=== PATIENT | male | born 1965 | race Caucasian/White ===

== ENCOUNTER 2018-08-04 15:30 | Outpatient (RCR) | payer OTHER, SELFPAY ==
--- NOTE | 2018-06-05 16:11 | HP.PTEVAL_ITS ---
Patient's Visit Information HONG SILVESTRE is a 53 year old M referred to Physical Therapy by Anel Bueno MD with a diagnosis of B plantar fasciitis.. Date of Evaluation: 06/05/18 Physical Therapist: Puneet Mccormack DPT, OCS, CSCS - Visit Plan Duration: 1 more visit Plan: Call pt when orthotics arrive for fitting. They were molded and sent off to [employer] today. - Subjective Findings: Orthotics are working well and uses older ones but time for new ones. Not really having pain but the plantar fascia can still get tender if he does more. stretches regularly and orthotics help keep it under control. Not able to run. Plays tennis and walks daily without issue 3 miles daily. Switches walking shoes every 6 months. - Objective Pt walks normal and trasnfers normal. No antalgia or limping in gait today. Mild tenderness in B PF bodies. Frontal plane mechanics at feet are slightly pes cavus. Otherwise unremarkable. AROM R ankle to approx 3 degrees DF with knee straight and WFL otherwise. Strength 5/5 in inversion/eversion and DF. - Goals Goal 1:: fit for and I in use of 9dispensed) custom orthotics per doctor order. Goal Time Frame: 2-4 Weeks - Rehabilitation Potential Physical Therapy Diagnosis: B plantarfasciitis history Rehabilitation Potential: Fair - Anticipated Interventions Patient/Client Instruction: Educate patient on: Plan of Care Other: orthotics Orthotics: Shoe insert For the Purpose of:: To decrease pain, To increase tolerance to activity/condition/position Thank you for the opportunity to evaluate your patient. For Medicare and Medicare HMO plans, please review the plan of care and approve it. It will need to be FAXED BACK to us at [phone] for Medicare purposes. For Medicare only, by signing this I certify the plan of care. Please let me know if there are questions or concerns regarding this plan of care. Physician Signature: Date :
--- OUTSIDE RECORDS SUMMARY | 2018-09-09 06:30 | XMS RPT_ITS ---
:1965 Author Organization OHIP Care Team Providers Name Role Phone Anel Bueno Attending Unavailable Anel Bueno Primary Care Unavailable PROBLEMS PROBLEMS No Problem Records FoundPROCEDURES PROCEDURES No Procedure Records FoundRESULTS RESULTS BMP Collected: 06/30/2018 Status: F Source: [facility] 4:20 [place] [facility] REPOSITORY TYPE CODE TESTS RESULT OUT OF REFERENCE UNITS RANGE LAB GLU(LOINC) 70-110 mg/dL Glucose Level 96 LAB NA(LOINC) 136-145 mEq/L Sodium Level 144 LAB K(LOINC) 3.5-5.0 mEq/L Potassium Level 4.3 LAB CL(LOINC) 98-110 mEq/L Chloride 105 LAB CO2(LOINC) 22-32 mEq/L CO2 32 LAB EBAL(LOINC 4.0-15.0 mEq/L ) Electrolyte Balance 7.0 LAB BUN(LOINC) 8.0-22.0 mg/dL BUN 18.0 LAB CRE(LOINC) 0.60-1.40 mg/dL Creatinine Lvl (s) 0.98 LAB BC(LOINC) 10.0-22.0 ratio BUN/Creatinine 18.4 Ratio LAB CA(LOINC) 8.4-10.1 mg/dL Calcium Lvl 9.0 Performed By: #### BMP, CK, GFR #### [address] [address] CK Collected: 06/30/2018 Status: F Source: [facility] 4:20 PM [facility] REPOSITORY TYPE CODE TESTS RESULT OUT OF RANGE REFERENCE UNITS LAB CK(LOINC) 7-185 U/L CPK 100 Performed By: #### BMP, CK, GFR #### [address] [address] .GFR Collected: 06/30/2018 Status: F Source: [facility] 4:20 PM [facility] REPOSITORY TYPE CODE TESTS RESULT OUT OF REFERENCE UNITS RANGE LAB GFRAA(LOINC ml/min/1.73 ) sqm GFR >60 [place] Result Comment: GFR Population mean for , Non- Americans Ages 20-29 = 116 mL/min/1.73 sq.m. Ages 30-39 = 107 mL/min/1.73 sq.m. Ages 40-49 = 99 mL/min/1.73 sq.m. Ages 50-59 = 93 mL/min/1.73 sq.m. Ages 60-69 = 85 mL/min/1.73 sq.m. Ages 70+ = 75 mL/min/1.73 sq.m. Chronic Kidney Disease: Less than 60 mL/min/1.73 square meters End Stage Renal Disease: Less than 15 mL/min/1.73 square meters LAB GFRNO(LOINC) ml/min/1.73sqm GFR Non- >60 Result Comment: GFR Population mean for , Non- Americans Ages 20-29 = 116 mL/min/1.73 sq.m. Ages 30-39 = 107 mL/min/1.73 sq.m. Ages 40-49 = 99 mL/min/1.73 sq.m. Ages 50-59 = 93 mL/min/1.73 sq.m. Ages 60-69 = 85 mL/min/1.73 sq.m. Ages 70+ = 75 mL/min/1.73 sq.m. Chronic Kidney Disease: Less than 60 mL/min/1.73 square meters End Stage Renal Disease: Less than 15 mL/min/1.73 square meters Performed By: #### BMP, CK, GFR #### [place] [address] FE Collected: 06/09/2018 Status: F Source: [facility] 9:51 AM [facility] REPOSITORY TYPE CODE TESTS RESULT OUT OF RANGE REFERENCE UNITS LAB FE(LOINC) 49-181 mcg/dL Iron 135 Performed By: #### FE, TSH, CK, CMP, GFR, LIPID, CBC, ADIFF, ANEU #### [place] [address] TSH Collected: 06/09/2018 Status: F Source: [facility] 9:51 AM [facility] REPOSITORY TYPE CODE TESTS RESULT OUT OF RANGE REFERENCE UNITS LAB TSH(LOINC) 0.360-3.740 mcIU/mL TSH 2.500 Result Comment: Please note as of 01/04/17 new pediatric reference intervals were added for this test. Performed By: #### FE, TSH, CK, CMP, GFR, LIPID, CBC, ADIFF, ANEU #### [facility] [address] [place] [address] CK Collected: 06/09/2018 Status: F Source: [facility] 9:51 AM [facility] REPOSITORY TYPE CODE TESTS RESULT OUT OF RANGE REFERENCE UNITS LAB CK(LOINC) 7-185 U/L CPK 128 Performed By: #### FE, TSH, CK, CMP, GFR, LIPID, CBC, ADIFF, ANEU #### [facility] [address] [place] [address] CMP Collected: 06/09/2018 Status: F Source: [facility] 9:51 AM [facility] REPOSITORY TYPE CODE TESTS RESULT OUT OF REFERENCE UNITS RANGE LAB GLU(LOINC) 70-110 mg/dL Glucose Level 81 LAB NA(LOINC) 136-145 mEq/L Sodium Level 141 LAB K(LOINC) 3.5-5.0 mEq/L Potassium Level 4.3 LAB CL(LOINC) 98-110 mEq/L Chloride 103 LAB CO2(LOINC) 22-32 mEq/L CO2 32 LAB EBAL(LOINC 4.0-15.0 mEq/L ) Electrolyte Balance 6.0 LAB BUN(LOINC) 8.0-22.0 mg/dL BUN 15.0 LAB CRE(LOINC) 0.60-1.40 mg/dL Creatinine Lvl (s) 0.89 LAB BC(LOINC) 10.0-22.0 ratio BUN/Creatinine 16.9 Ratio LAB CA(LOINC) 8.4-10.1 mg/dL Low Calcium Lvl 8.2 LAB PROT(LOINC 6.0-8.5 G/dL ) Total Protein 7.1 LAB ALB(LOINC) 3.2-4.8 G/dL Albumin Level 3.8 LAB GLB(LOINC) 1.5-3.8 G/dL Globulin 3.3 LAB AG(LOINC) 0.9-1.6 ratio A/G Ratio 1.2 LAB BILT(LOINC 0.2-1.2 mg/dL ) Bili Total 0.8 LAB AP(LOINC) 38-126 U/L Alk Phos 51 LAB AST(LOINC) 8-34 U/L AST/SGOT 18 LAB ALT(LOINC) 12-55 U/L ALT/SGPT 37 Performed By: #### FE, TSH, CK, CMP, GFR, LIPID, CBC, ADIFF, ANEU #### [place] [address] .GFR Collected: 06/09/2018 Status: F Source: [facility] 9[facility] REPOSIT[facility] TYPE CODE TESTS RESULT OUT OF REFERENCE UNITS RANGE LAB GFRAA(LOINC ml/min/1.73 ) sqm GFR >60 [place] Result Comment: GFR Population mean for , Non- Americans Ages 20-29 = 116 mL/min/1.73 sq.m. Ages 30-39 = 107 mL/min/1.73 sq.m. Ages 40-49 = 99 mL/min/1.73 sq.m. Ages 50-59 = 93 mL/min/1.73 sq.m. Ages 60-69 = 85 mL/min/1.73 sq.m. Ages 70+ = 75 mL/min/1.73 sq.m. Chronic Kidney Disease: Less than 60 mL/min/1.73 square meters End Stage Renal Disease: Less than 15 mL/min/1.73 square meters LAB GFRNO(LOINC) ml/min/1.73sqm GFR Non- >60 Result Comment: GFR Population mean for , Non- Americans Ages 20-29 = 116 mL/min/1.73 sq.m. Ages 30-39 = 107 mL/min/1.73 sq.m. Ages 40-49 = 99 mL/min/1.73 sq.m. Ages 50-59 = 93 mL/min/1.73 sq.m. Ages 60-69 = 85 mL/min/1.73 sq.m. Ages 70+ = 75 mL/min/1.73 sq.m. Chronic Kidney Disease: Less than 60 mL/min/1.73 square meters End Stage Renal Disease: Less than 15 mL/min/1.73 square meters Performed By: #### FE, TSH, CK, CMP, GFR, LIPID, CBC, ADIFF, ANEU #### [address] [address] LIPID Collected: 06/09/2018 Status: F Source: [facility] 9:51 AM [facility] REPOSITORY TYPE CODE TESTS RESULT OUT OF REFERENCE UNITS RANGE LAB CHOL(LOINC 50-199 mg/dL ) Cholesterol 115 Result Comment: Cholesterol Reference Interval: Less than 200 Desirable 200-239 Borderline high risk 240 and above High risk LAB TRIG(LOINC) 3-149 mg/dL Triglycerides 70 Result Comment: Triglyceride Reference Interval: Less than 150 Normal 150-199 Borderline high risk 200-499 High risk 500 or higher Very high risk LAB HD(LOINC) 40-59 mg/dL HDL Cholesterol 45 Result Comment: HDL Reference Interval: Less than 40 Low - high risk 60 or above Optimal/lowers risk LAB LDL(LOINC) 0-129 mg/dL LDL Cholesterol 56 Result Comment: LDL is a calculated result and requires a 12-hr fast. LDL Reference Interval: Less than 100 Optimal 100-129 Near or above optimal 130-159 Borderline high risk 160-189 High risk 190 and above Very high risk Performed By: #### FE, TSH, CK, CMP, GFR, LIPID, CBC, ADIFF, ANEU #### [address] [address] CBC Collected: 06/09/2018 Status: F Source: [facility] 9:51 AM [facility] REPOSITORY TYPE CODE TESTS RESULT OUT OF REFERENCE UNITS RANGE LAB WBC(LOINC) 4.50-10.80 10 3/mcL WBC 5.10 LAB RBCCT(LOINC 4.50-6.00 10 6/mcL ) RBC 5.00 LAB HGB(LOINC) 13.0-17.5 G/dL Hgb 15.2 LAB HCT(LOINC) 40.0-52.0 % Hct 44.4 LAB MCV(LOINC) 81.0-100.0 fL MCV 88.8 LAB MCH(LOINC) 27.0-33.0 pg MCH 30.5 LAB MCHC(LOINC) 32.0-36.0 G/dL MCHC 34.3 LAB RDW(LOINC) 11.5-15.5 % RDW 13.0 LAB PLT(LOINC) 150-450 10 3/mcL Platelet 204 LAB MPV(LOINC) 6.4-10.5 fL MPV 8.8 Performed By: #### FE, TSH, CK, CMP, GFR, LIPID, CBC, ADIFF, ANEU #### [address] [address] .AUTO DIFF Collected: 06/09/2018 Status: F Source: [facility] 9:51 AM [facility] REPOSITORY TYPE CODE TESTS RESULT OUT OF REFERENCE UNITS RANGE LAB MARLIN(LOINC) 50.0-75.0 % Neutrophil % 68.3 LAB LYM(LOINC) 20.0-40.0 % Lymphocyte % 21.7 LAB MON(LOINC) 2.0-13.0 % Monocyte % 6.3 LAB EO(LOINC) 0.0-6.0 % Eosinophil % 2.8 LAB BAS(LOINC) 0.0-2.5 % Basophil % 0.9 LAB ABLYM(LOIN 0.90-4.32 10 3/mcL C) Lymphocyte, 1.10 Absolute LAB CLARE(LOINC 0.09-1.40 10 3/mcL ) Monocyte, 0.30 Absolute LAB AEOS(LOINC 0.00-0.65 10 3/mcL ) Eosinophil, 0.10 Absolute LAB ABAS(LOINC 0.00-0.27 10 3/mcL ) Basophil, 0.00 Absolute Performed By: #### FE, TSH, CK, CMP, GFR, LIPID, CBC, ADIFF, ANEU #### [address] [address] .NEUABS Collected: 06/09/2018 Status: F Source: [facility] 9:51 AM [facility] REPOSITORY TYPE CODE TESTS RESULT OUT OF REFERENCE UNITS RANGE LAB ANEU(LOINC) 2.25-8.10 10 3/mcL Neutrophil, 3.50 Absolute Performed By: #### FE, TSH, CK, CMP, GFR, LIPID, CBC, ADIFF, ANEU #### [address] [address] INITAL EVALUATION (1) Observed: 06/08/2018 Status: F Source: [facility] PT 6:44 AM [facility] REPOSITORY [facility] Physical Therapy Health[address] [place] [address] Fax REHABILITATION SERVICES INITIAL EVALUATION MR#: [id number] Acct: [id number] Name: JOSÉ LUIS SILVESTRE Rep #: [id number] : 1965 53 From: Puneet Mccormack DPT, OCS, CSCS Referring Dr.: Anel Bueno MD Status: REG RCR Insurance: [facility] SELF PAY INSURANCE Patient's Visit Information JOSÉ LUIS SILVESTRE is a 53 year old M referred to Physical Therapy by Anel Bueno MD with a diagnosis of B plantar fasciitis.. Date of Evaluation: 06/05/18 Physical Therapist: Puneet Mccormack DPT, OCS, CSCS - Visit Plan Duration: 1 more visit Plan: Call pt when orthotics arrive for fitting. They were molded and sent off to [facility] today. - Subjective Findings: Orthotics are working well and uses older ones but time for new ones. Not really having pain but the plantar fascia can still get tender if he does more. stretches regularly and orthotics help keep it under control. Not able to run. Plays tennis and walks daily without issue 3 miles daily. Switches walking shoes every 6 months. - Objective Pt walks normal and trasnfers normal. No antalgia or limping in gait today. Mild tenderness in B PF bodies. Frontal plane mechanics at feet are slightly pes cavus. Otherwise unremarkable. AROM R ankle to approx 3 degrees DF with knee straight and WFL otherwise. Strength 5/5 in inversion/eversion and DF. - Goals Goal 1:: fit for and I in use of 9dispensed) custom orthotics per doctor order. Goal Time Frame: 2-4 Weeks - Rehabilitation Potential Physical Therapy Diagnosis: B plantarfasciitis history Rehabilitation Potential: Fair - Anticipated Interventions Patient/Client Instruction: Educate patient on: Plan of Care Other: orthotics Orthotics: Shoe insert For the Purpose of:: To decrease pain, To increase tolerance to activity/condition/position Thank you for the opportunity to evaluate your patient. For Medicare and Medicare HMO plans, please review the plan of care and approve it. It will need to be FAXED BACK to us at [phone] for Medicare purposes. For Medicare only, by signing this I certify the plan of care. Please let me know if there are questions or concerns regarding this plan of care. Physician Signature: Date: <Electronically signed by Puneet Mccormack DPT, OCS, CSCS> 06/08/18 0644 CC: Anel Bueno MD EBG Signed ALLERGIES ALLERGIES No Allergies Records FoundENCOUNTERS ENCOUNTERS ADMIT/DISCHARGE ACCOUNT ADMITTING ENCOUNTER LOCATION SOURCE NUMBER CLASS 06/05/2018 [id number] Ambulatory [place] [facility] ing:PT Repository PAYERS PAYERS ENCOUNTER GUARANTOR PAYER SUBSCRIBER SOURCE 06/05/2018 José Luis Wilkser[address] Insurance:MEDICAL RABERDOB: [id number] [place] [address]Wgu: Number: Repository [id number] (HP) Date:[id number] [address]TG: 06/05/2018 Secondary NOT GIVENUNK [place] Insurance:SELF PAY [facility] Number: Effective Repository Date:2018-06-02
--- NOTE | 2018-09-23 15:16 | HP.PT.NRP ---
HP - Discharge Summary (1) - Patient Information HONG SILVESTRE was seen in my office for initial evaluation on 06/05/18. The following Plan of Care was established for this patient: Initial Duration: 1 more visit - Anticipated Interventions Patient/Client Instruction: Educate patient on: Plan of Care Other: orthotics Orthotics: Shoe insert For the Purpose of:: To decrease pain, To increase tolerance to activity/condition/position This patient was last seen in our office . Pertinent comments regarding their Physical therapy will appear below: At this point I will be discontinuing this patient from physical therapy. I would be happy to see this patient again in the future if found appropriate by the physician. Thank you! Puneet Mccormack, DPT, OCS, CSCS
== END 2018-08-04 19:00 | disposition home or self-care (01) ==
LOC: PT 15:30
PROVIDERS: Family Provider Family Medicine; PCP Family Medicine; Visit Provider Family Medicine
DX: M72.2 Plantar fascial fibromatosis (principal)
CPT/HCPCS: 97161; 97760; 97763

== ENCOUNTER 2021-04-04 13:30 | Outpatient (RCR) | payer OTHER, SELFPAY ==
--- NOTE | 2021-03-13 15:22 | HP.PTEVAL ---
Patient's Visit Information HONG SILVESTRE is a 55 year old M referred to Physical Therapy by Dr. Anel Bueno MD with a diagnosis of custom orthoitcs. Date of Evaluation: 03/13/21 Physical Therapist: Puneet Mccormack DPT, OCS, CSCS - Visit Plan Plan: call [employer] orthotics retunred, sent to [employer] for fabrication today. - Subjective No new problems. Needs new orthotics with achy feet every 2-3 years. Current orthotics are wearing out. Goes hiking at [employer] and did OK with them. Was in [employer] and did OK but they are wearing out. No problems with PFitis lately. doing stretches and walking regularly. Runs jogsd on rubberized track once or twice per week adn stay out of trouble. can't run on road due to foot pain. - Objective Walks normal and trasnfers normal and I without pain. AROM LE WFL, DF to 60 degrees and full PF adn inv/ev. Strength ankles WFL and solid B all directions. Sensation WNL LE feet. Foot posture is neutral in the hindfoot adn slight pes cavus B with alessio feet sie 12.5. 175# 6 foot tall. Has old orhtoics and they are well worn. - Balance/Special Test Scores Lower Extremity Functional Score: 57 - Goals Goal 1:: Get new custom orhtoitcs for foot health maintenance and I in use. Goal Time Frame: 2-4 Weeks - Rehabilitation Potential Physical Therapy Diagnosis: maintenance custom orthotics Rehabilitation Potential: Good - Anticipated Interventions Patient/Client Instruction: Educate patient on: Condition, Plan of Care Orthotics: Shoe insert For the Purpose of:: To prevent re-injury Thank you for the opportunity to evaluate your patient. For Medicare and Medicare HMO plans, please review the plan of care and approve it. It will need to be FAXED BACK to us at [phone] for Medicare purposes. For Medicare only, by signing this I certify the plan of care. Please let me know if there are questions or concerns regarding this plan of care. Physician Signature: Date:
--- NOTE | 2021-04-04 13:45 | HP.PTDCSUM ---
It has been my pleasure to treat HONG SILVESTRE referred by Dr. Anel Bueno MD, with the diagnosis of custom orthoitcs for a total of 2 visit(s). Discharge Date: 04/04/21 Please see the following information for a summary of their discharge status. Subjective: Doing well. % Improvement: 0 Objective/Function: Good fit in shoe and good feel to patient, no modifications needed. Goal 1:: Get new custom orhtoitcs for foot health maintenance and I in use. Goal Progress: Goal Met Plan: d/c If there are questions or concerns regarding this patient's physical therapy, please feel free to call me at [phone]. Thank you for the referral of this patient. Sincerely, Puneet Mccormack, EVET, OCS, CSCS Balance/Gait/Functional tests - Balance/Special Test Scores Lower Extremity Functional Score: 57
== END 2021-04-04 19:00 | disposition home or self-care (01) ==
LOC: PT 13:30
PROVIDERS: PCP Family Medicine; Referring Provider Family Medicine; Visit Provider Family Medicine
DX: Z46.89 Encounter for fitting and adjustment of other specified devices (principal)
CPT/HCPCS: 97161; 97763

== ENCOUNTER 2023-12-12 07:00 | Outpatient (RCR) | payer OTHER, SELFPAY ==
--- NOTE | 2023-11-14 07:46 | HP.PTEVAL_ITS ---
Patient's Visit Information Visit Information Visit Information: HONG SILVESTRE is a 58 year old M referred to Physical Therapy by Self Referred with a diagnosis of N/A. Date of Evaluation: 11/14/23 Physical Therapist: Puneet Mccormack, DPT, OCS, CSCS Visit Plan Duration: 2 visits Plan: molded for [employer] orthotics and sent off for production, call when they come in to fit to shoe Subjective Subjective: Feet are getting sore again. Has not got orthotics in 3 yrs or so. Feels better in the orthotics. Toes tingled once and worried about gout. Soreness in feet is noticeable low grade ache if standing too long. Does not run much anymore, walks alot. Sleep is ok. Big toe hurts sometimes. Enjoys playing [employer] ball and feet toelrate that well. Job is half up and half down, Not too bad on feet. Objective Objective: ROM and flexibility in LE and ankles is good, pt manages well with home rolling and stretching and stays active. HS are mod tight at -30 90/90 test. strength ankles 5/5. Has mild pes planus but hardly worth mentioning. No tenderness in feet or ankles today. Walks without gait deviaitons. 5 degrees B DF and symmetrical PF. able to heel raise and toe raise without pain Wants [employer] orthotics as he has had them in the past. Goals Goal 1:: fit for and I in use of new orthotics Goal Time Frame: 2-4 Weeks Rehabilitation Potential Physical Therapy Diagnosis: foot support needed to helpo maintain health of feet. Rehabilitation Potential: Fair Anticipated Interventions Orthotics: Shoe insert For the Purpose of:: To improve nutrient delivery to tissue and To improve health of tissue Other: maintain helath of tissue Text: Thank you for the opportunity to evaluate your patient. For Medicare and Medicare HMO plans, please review the plan of care and approve it. It will need to be FAXED BACK to us at [phone] for Medicare purposes. For Medicare only, by signing this I certify the plan of care. Please let me know if there are questions or concerns regarding this plan of care. Physician Signature: Date:
--- NOTE | 2023-12-12 07:26 | HP.PTDCSUM ---
Discharge Summary D/C summary: It has been my pleasure to treat HONG SILVESTRE referred by Self Referred, with the diagnosis of N/A for a total of 2 visit(s). Discharge Date: 12/12/23 Please see the following information for a summary of their discharge status. Subjective Subjective: Ready for new orthotics, old ones just aren't supporting as much. Objective Objective/Function: good fit at end and comfortable. Goals Goal 1:: fit for and I in use of new orthotics Goal Progress: Goal Met Plan Plan: d/c D/C Information d/c sentence: If there are questions or concerns regarding this patient's physical therapy, please feel free to call me at [phone]. Thank you for the referral of this patient. Sincerely, Puneet Mccormack, DPT, OCS, CSCS
== END 2023-12-12 12:50 | disposition home or self-care (01) ==
LOC: PT 07:00
PROVIDERS: PCP Family Medicine
DX: Z00.00 Encounter for general adult medical examination without abnormal findings (principal)
CPT/HCPCS: 97161; 97760; 97763

== ENCOUNTER → 2024-03-05 | Outpatient (CLI) | payer OTHER, SELFPAY ==
--- NOTE | 2024-03-05 13:50 | RAD_ITS ---
STUDY: X-RAY - LUMBAR SPINE REASON FOR EXAM: Male, 58 years old. Low back pain. TECHNIQUE: 3 view(s) of the lumbar spine were obtained. COMPARISON: None FINDINGS: Normal lumbar lordosis. Mild dextroscoliosis. Normal vertebral alignment. Diffuse moderate lower thoracic and lumbosacral facet sclerosis. Diffuse intervertebral disc space narrowing with osteophytes most marked at L1-2 and L3-4. Vascular calcification. RAD/Lumbar Spine 2 or 3 Views IMPRESSION: Mild lower thoracic and lumbosacral spondylosis as described. Electronically Signed: Rashaad Stern MD at 14:26 EDT ,
== END | disposition home or self-care (01) ==
LOC: RAD 13:43
PROVIDERS: PCP Family Medicine; Referring Provider Family Medicine; Visit Provider Family Medicine
DX: M54.50 Low back pain, unspecified (principal)
CPT/HCPCS: 72100